=== PATIENT | male | born 1960 | race African-American/Black ===

== ENCOUNTER 2022-11-03 15:57 | Emergency (ER) | payer MEDICAID, SELFPAY ==
[2022-11-03 16:15] VITALS: BP 185/118; PULSE 68; RESP 16; TEMP 36.6; O2SAT 98
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
[2022-11-03 16:58] VITALS: BP 148/99
== END 2022-11-03 16:45 | disposition home or self-care (01) ==
PROVIDERS: Emergency Provider Nurse Practitioner Family
DX: S81.802D Unspecified open wound, left lower leg, subsequent encounter (principal); L08.9 Local infection of the skin and subcutaneous tissue, unspecified; W34.00XD Accidental discharge from unspecified firearms or gun, subsequent encounter
CPT/HCPCS: 87070; 87205; 99213; G0463